=== PATIENT | male | born 1955 | race African-American/Black ===

== ENCOUNTER 2021-02-19 15:35 | Inpatient (IN) | payer OTHER ==
[2021-02-19 19:03] VITALS: BMI 15.7
[2021-02-19] MEDS ORDERED: MAGNESIUM HYDROX 2400MG/30ML ORAL SUSPENSION 30 ML CUP PO PRN (20:16)
[2021-02-19] MEDS ORDERED: MAG HYDROX/AL HYDROX/SIMETH 30 ML UNIT-DOSE CUP PO PRN (20:16)
[2021-02-19] MEDS ORDERED: IBUPROFEN 400 MG TABLET (FP) PO PRN (20:16)
[2021-02-19] MEDS ORDERED: MENTHOL/PHENOL 1 EACH UD MM PRN (20:16)
[2021-02-19] MEDS ORDERED: ACETAMINOPHEN 325 MG TABLET (FP) PO PRN ×2 (20:16)
[2021-02-19] MEDS ORDERED: MAGNESIUM CITRATE 300 ML BOTTLE PO PRN (20:16)
[2021-02-19] MEDS ORDERED: BISMUTH SUBSALICYLATE 524 MG/30 ML PO PRN (20:16)
[2021-02-19] MEDS ORDERED: ONDANSETRON *ODT* 4 MG TABLET SL PRN (20:16)
[2021-02-20] MEDS: THIAMINE HCL 100 MG TABLET (FP) PO SCH ×2 (01:23→22:48)
[2021-02-20] MEDS: MELATONIN 5 MG TABLETS PO SCH ×2 (01:23→22:48)
[2021-02-20] MEDS: PRENATAL VITAMINS W/ FOLIC ACID TABLET (FP) PO SCH (11:00)
[2021-02-20 11:13] LABS: CHLORIDE 105 mmol/L (98-107); SODIUM 140 mmol/L (136-145)
[2021-02-20 11:22] LABS: CALCIUM 9.9 mg/dL (8.5-10.1); GLUCOSE,RANDOM 77 mg/dL (74-106)
[2021-02-20 11:23] LABS: ALBUMIN 2.9 g/dl (3.4-5.0); BLOOD UREA NITROGEN 9.5 mg/dL (7-18); CO2 27 mmol/L (21-32)
[2021-02-20 11:26] LABS: CREATININE 0.9 mg/dL (0.55-1.3); SGOT/AST 24 U/L (15-37); SGPT/ALT 17 U/L (13-61)
[2021-02-20 11:27] LABS: BILIRUBIN,TOTAL 1.2 mg/dL (0.2-1); TOT PROT 7.3 g/dl (6.4-8.2)
[2021-02-20 11:28] LABS: ALK PHOS 65 U/L (45-117)
[2021-02-20 11:35] LABS: ANION GAP 8 MMOL/L (8-16)
[2021-02-20 11:36] LABS: MCH 35.7 pg (25.7-33.7); MCHC 34.4 g/dl (32.0-35.9); MEAN PLT VOLUME 7.9 fl (7.5-11.1); PLATELET COUNT 224 10^3/uL (134-434); RBC 2.79 M/mm3 (4.00-5.60); RDW 15.8 % (11.9-15.9); WHITE BLOOD COUNT 5.6 K/mm3 (4.0-10.0)
[2021-02-20] MEDS ORDERED: chlordiazePOXIDE HCL 25 MG CAPSULE PO PRN (11:42)
[2021-02-20] MEDS ORDERED: POTASSIUM CHLORIDE ORAL LIQUID 20 MEQ/15 ML PO ONE (11:42)
[2021-02-20] MEDS: chlordiazePOXIDE HCL 10 MG CAPSULE PO SCH ×3 (12:40→22:48)
[2021-02-20] MEDS: POTASSIUM CHLORIDE ORAL LIQUID 20 MEQ/15 ML PO SCH (22:37)
[2021-02-21] MEDS: chlordiazePOXIDE HCL 10 MG CAPSULE PO SCH ×4 (06:39→22:34)
[2021-02-21] MEDS: POTASSIUM CHLORIDE ORAL LIQUID 20 MEQ/15 ML PO SCH ×2 (11:23→22:34)
[2021-02-21] MEDS: PRENATAL VITAMINS W/ FOLIC ACID TABLET (FP) PO SCH (11:24)
[2021-02-21] MEDS: FERROUS SO4 325 MG TABLET (FP) PO SCH ×2 (11:24→22:33)
[2021-02-21] MEDS: MELATONIN 5 MG TABLETS PO SCH (22:33)
[2021-02-21] MEDS: THIAMINE HCL 100 MG TABLET (FP) PO SCH (22:34)
[2021-02-22] MEDS: chlordiazePOXIDE HCL 25 MG CAPSULE PO SCH ×2 (05:31→11:06)
[2021-02-22 10:07] LABS: CALCIUM 9.5 mg/dL (8.5-10.1)
[2021-02-22 10:08] LABS: ALBUMIN 2.7 g/dl (3.4-5.0)
[2021-02-22 10:11] LABS: CREATININE 0.9 mg/dL (0.55-1.3)
[2021-02-22 10:12] LABS: BILIRUBIN,TOTAL 0.4 mg/dL (0.2-1); TOT PROT 6.9 g/dl (6.4-8.2)
[2021-02-22] MEDS: FERROUS SO4 325 MG TABLET (FP) PO SCH ×2 (10:57→23:22)
[2021-02-22] MEDS: PRENATAL VITAMINS W/ FOLIC ACID TABLET (FP) PO SCH (10:57)
[2021-02-22] MEDS: chlordiazePOXIDE HCL 10 MG CAPSULE PO SCH ×2 (18:46→23:22)
[2021-02-22] MEDS: THIAMINE HCL 100 MG TABLET (FP) PO SCH (23:22)
[2021-02-22] MEDS: MELATONIN 5 MG TABLETS PO SCH (23:22)
[2021-02-23] MEDS ORDERED: chlordiazePOXIDE HCL 10 MG CAPSULE PO PRN
[2021-02-23] MEDS ORDERED: chlordiazePOXIDE HCL 10 MG CAPSULE PO SCH (05:00)
[2021-02-23] MEDS: chlordiazePOXIDE HCL 10 MG CAPSULE PO SCH ×4 (06:02→22:52)
[2021-02-23] MEDS: FERROUS SO4 325 MG TABLET (FP) PO SCH ×2 (10:47→22:52)
[2021-02-23] MEDS: PRENATAL VITAMINS W/ FOLIC ACID TABLET (FP) PO SCH (10:47)
[2021-02-23] MEDS: THIAMINE HCL 100 MG TABLET (FP) PO SCH (22:52)
[2021-02-23] MEDS: MELATONIN 5 MG TABLETS PO SCH (22:53)
[2021-02-24] MEDS: chlordiazePOXIDE HCL 10 MG CAPSULE PO SCH ×2 (06:00→17:50)
[2021-02-24] MEDS: PRENATAL VITAMINS W/ FOLIC ACID TABLET (FP) PO SCH (10:48)
[2021-02-24] MEDS: FERROUS SO4 325 MG TABLET (FP) PO SCH ×2 (10:49→22:09)
[2021-02-24] MEDS: MELATONIN 5 MG TABLETS PO SCH (22:09)
[2021-02-24] MEDS: THIAMINE HCL 100 MG TABLET (FP) PO SCH (22:09)
[2021-02-25] MEDS ORDERED: chlordiazePOXIDE HCL 10 MG CAPSULE PO ONE (05:00)
[2021-02-25] MEDS: PRENATAL VITAMINS W/ FOLIC ACID TABLET (FP) PO SCH (11:00)
[2021-02-25] MEDS: FERROUS SO4 325 MG TABLET (FP) PO SCH ×2 (11:00→22:56)
[2021-02-25 15:28] LABS: BASO % 0.9 % (0-2.0); HEMATOCRIT 26.7 % (35.4-49); HEMOGLOBIN 8.8 GM/dL (11.7-16.9); MCH 34.8 pg (25.7-33.7); MCHC 32.8 g/dl (32.0-35.9); MEAN PLT VOLUME 8.6 fl (7.5-11.1); MONO % 16.3 % (3.8-10.2); NEUT % 46.8 % (42.8-82.8); PLATELET COUNT 135 10^3/uL (134-434); RBC 2.52 M/mm3 (4.00-5.60); RDW 15.9 % (11.9-15.9); WHITE BLOOD COUNT 4.8 K/mm3 (4.0-10.0)
[2021-02-25 16:32] LABS: ANISOCYTOSIS 2+; MACROCYTOSIS 2+
[2021-02-25] MEDS: MELATONIN 5 MG TABLETS PO SCH (22:56)
[2021-02-25] MEDS: THIAMINE HCL 100 MG TABLET (FP) PO SCH (22:56)
[2021-02-26 09:08] VITALS: BP 123/67; PULSE 86; TEMP 97.2
[2021-02-26] MEDS: FERROUS SO4 325 MG TABLET (FP) PO SCH ×2 (10:20→23:52)
[2021-02-26] MEDS: PRENATAL VITAMINS W/ FOLIC ACID TABLET (FP) PO SCH (10:20)
[2021-02-26] MEDS: MELATONIN 5 MG TABLETS PO SCH (23:52)
[2021-02-26] MEDS: THIAMINE HCL 100 MG TABLET (FP) PO SCH (23:53)
== END 2021-02-27 06:42 | disposition short-term general hospital (02) | DRG 896 ==
LOC: YASAS 15:35 → Y6N 23:37
PROVIDERS: ADMIT Allergy & Immunology; ATTEND Allergy & Immunology
PROC: HZ2ZZZZ Detoxification Services for Substance Abuse Treatment (ICD-10-PCS; principal; 2021-02-19)
DX: F10.230 Alcohol dependence with withdrawal, uncomplicated (principal); U07.1 COVID-19; Z68.1 Body mass index [BMI] 19.9 or less, adult; F17.210 Nicotine dependence, cigarettes, uncomplicated; D50.9 Iron deficiency anemia, unspecified; R63.4 Abnormal weight loss; R26.89 Other abnormalities of gait and mobility; Z99.89 Dependence on other enabling machines and devices; Z91.013 Allergy to seafood
CPT/HCPCS: 36415; 80053; 84132; 85025; 85027; 86780; C9803; U0003; U0005

== ENCOUNTER 2021-02-26 11:10 | Emergency (ER) | payer OTHER ==
[2021-02-26 11:38] VITALS: BP 117/67; PULSE 82; TEMP 98; BMI 17.4
[2021-02-26 13:20] LABS: BASO % 0.6 % (0-2.0); EOS % 1.9 % (0-4.5); HEMATOCRIT 27.8 % (35.4-49); HEMOGLOBIN 9.3 GM/dL (11.7-16.9); LYMPH % 30.1 % (8-40); MCH 35.3 pg (25.7-33.7); MCHC 33.2 g/dl (32.0-35.9); MEAN CELL VOLUME 106.2 fl (80-96); MEAN PLT VOLUME 7.9 fl (7.5-11.1); MONO % 18.1 % (3.8-10.2); NEUT % 49.3 % (42.8-82.8); PLATELET COUNT 145 10^3/uL (134-434); RBC 2.62 M/mm3 (4.00-5.60); WHITE BLOOD COUNT 4.8 K/mm3 (4.0-10.0)
[2021-02-26 13:33] LABS: INR 1.17 (0.83-1.09); PROTHROMBIN TIME (PATIENT) 13.5 SEC (9.7-13.0)
[2021-02-26 13:36] LABS: ACTIVATED PTT 28.4 SECONDS (25.2-36.5)
[2021-02-26 13:51] LABS: CHLORIDE 105 mmol/L (98-107); SODIUM 140 mmol/L (136-145)
[2021-02-26 13:54] LABS: ALBUMIN 2.6 g/dl (3.4-5.0); ANION GAP 6 MMOL/L (8-16); BLOOD UREA NITROGEN 9.9 mg/dL (7-18); CALCIUM 9.9 mg/dL (8.5-10.1); CO2 30 mmol/L (21-32); GLUCOSE,RANDOM 60 mg/dL (74-106)
[2021-02-26 13:58] LABS: BILIRUBIN,TOTAL 0.2 mg/dL (0.2-1); SGOT/AST 28 U/L (15-37); SGPT/ALT 20 U/L (13-61); TOT PROT 6.9 g/dl (6.4-8.2)
[2021-02-26 14:01] LABS: ALK PHOS 60 U/L (45-117)
== END 2021-02-26 17:27 | disposition home or self-care (01) ==
LOC: JER 11:10
DX: D64.9 Anemia, unspecified (principal)
CPT/HCPCS: 36415; 80053; 82272; 82550; 84484; 85025; 85610; 85730; 86850; 86900; 86901; 99284-25; C9803; U0003; U0005